=== PATIENT | female | born 1985 | race Caucasian/White ===

== ENCOUNTER 2017-02-22 11:24 | Emergency (ER) | payer OTHER ==
[2017-02-22] MEDS ORDERED: Sodium Chloride 0.9% 1,000 ML PRIMARY IV ONE (11:37)
--- NOTE | 2017-02-22 11:42 | PDOC ---
Female Problem HPI - General Chief Complaint: Vag Complaint/Bleed, <20WK IUP Stated Complaint: spotting in Date Seen by Provider: 02/22/17 Time Seen by Provider: 11:39 Source: POSITIVE: Patient Exam Limitations: POSITIVE: No limitations Nurse's Notes Reviewed & Considered: Yes - History of Present Illness Initial Comments: This is a pleasant 31-year-old female coming in today with complaints of vaginal spotting and dysuria. Patient presently here in [place] visiting from [place]. Yesterday she developed some vaginal discharge that was dark in nature as well as having light spotting and dysuria. She denies any fever chills or sweats, no nausea vomiting or diarrhea, no headache, no chest pain, no shortness of breath, no cough, no rashes, no myalgias or arthralgias. Body Location Affected: REPORTS: Abdomen, Genitalia Timing: REPORTS: Abrupt Duration: <24 hours Severity: Mild Quality: REPORTS: Cramping Location of Pain: REPORTS: Pelvic Cramping Vaginal Bleeding: REPORTS: Spotting : REPORTS: Sexual History: REPORTS: Active Urinary Symptoms: REPORTS: Blood in Urine, Burning w/ Urination Discharge: REPORTS: Vaginal Discharge Similar Symptoms Previously: Yes Recent Care Received: REPORTS: Denies Any Prior Injuries Related to Current Complaint?: No - Patient Home Medications Home Medications: Home Medications L.acidoph & Paracasei,B.lactis [Probiotic] 1 each PO DAILY 02/22/17 Vits W-Ca,Fe,FA(<1Mg) [] 1 tab PO DAILY 02/22/17 - Patient Allergies Allergies/Adverse Reactions: Allergies Allergy/AdvReac Type Severity Reaction Status Date / Time No Known Allergies Allergy Verified 02/22/17 11:44 ROS [place]: REPORTS: Denies Symptoms Cardiovascular: REPORTS: Denies Cardiac Symptoms Respiratory: REPORTS: Denies Resp Symptoms Neurological: REPORTS: Denies Neuro Symptoms Gastrointestinal: REPORTS: Denies GI Symptoms Endocrine: REPORTS: Denies Symptoms Musculoskeletal: REPORTS: Denies MS Symptoms Genitourinary: REPORTS: Dysuria, Other (Vaginal spotting) Eyes: REPORTS: Denies Symptoms ENT: REPORTS: Denies Symptoms Skin: REPORTS: Denies Skin Symptoms Lympathic: REPORTS: Denies Lympathic Symptoms Immunologic: POSITIVE: Denies Symptoms Psychiatric: POSITIVE: Denies Psych Symptoms Female Genitourinary Exam - General Appearance General Appearance: POSITIVE: Alert, Cooperative, No Acute Distress, No Evidence of Trauma - HEENT HEENT: POSITIVE: Head Inspection Nml, Eyes Inspection Nml, Ears Inspection Nml, Nose Inspection Nml, Oral/Dental Inspect. Nml, Pharynx Inspect. Nml, PERRL, EOMI - Neck Neck: POSITIVE: Normal Inspection, No Apparent Injury - Respiratory Respiratory: POSITIVE: No Respiratory Distress, Breath Sounds Normal, Chest Non- Tender - Cardiovascular Cardiovascular: POSITIVE: Regular Rate and Rhythm, Heart Sounds Normal, Strong Pulses Peripheral Pulses: Radial (R): 4+ - Abdomen Abdomen: POSITIVE: Soft, Normal Bowel Sounds, Non-Tender, Gravid Uterus (Fundus of the uterus is approximately 2 cm below the umbilicus.) - Back Back: POSITIVE: Normal Inspection - Skin Skin: POSITIVE: Intact, Normal For Race, Warm, Dry, No Rash - Extremities Extremity: Non-Tender: (All Extremities), Normal ROM: (All Extremities), Normal Inspection: (All Extremities), Pelvis Stable: (All Extremities) - Neurological / Psychological Neurological: POSITIVE: Oriented X3, block cutter Normal As Tested, Motor Normal, Sensation Normal, 5, 6 Female Genitourinary Progress - Results Reviewed by me Xrays/CTs/US Reviewed by me: Yes Discussed with Radiologist: Yes Lab Results Reviewed: Yes Lab Results:: Laboratory Results 02/22/17 02/22/17 Range/Units 11:58 12:40 WBC 12.07 H (4.8-10.8) 10^3/uL RBC 4.19 L (4.20-5.40) 10^6/uL Hgb 13.0 (12.0-16.0) g/dL Hct 37.7 (37.0-47.0) % MCV 90.0 (81-99) FL MCH 31.0 (27-31) PG MCHC 34.5 (33-37) g/dL RDW Std Deviation 40.1 (39-50) fL RDW Coeff of Lei 12.4 (11.5-14.5) % Plt Count 358 H (140-350) 10*3/uL MPV 9.3 (7.4-12.2) FL Immature Gran % (Auto) 0.2 (0-5) % Neut % (Auto) 76.9 (50-80) % Lymph % (Auto) 17.9 (10-50) % [place] % (Auto) 4.1 L (5-15) % Eos % (Auto) 0.4 (0-8) % Baso % (Auto) 0.5 (0-1) % Immature Gran # (Auto) 0.02 10*3/UL Neut # (Auto) 9.29 10*3/UL Lymph # (Auto) 2.16 10*3/uL [place] # (Auto) 0.49 (0.3-0.8) 10*3/UL Eos # (Auto) 0.05 10*3/UL Baso # (Auto) 0.06 10*3/UL WBC Morphology Comment Normal morphology (NORM) Plt Morphology Comment Normal morphology (NORM) RBC Morph Comment Normal morphology (NORM) Sodium 137 (135-145) meq/L Potassium 3.8 (3.8-5.2) meq/L Chloride 103 (98-112) meq/L Carbon Dioxide 21 L (23-33) meq/L Anion Gap 13 (5-20) BUN 10 (7-22) mg/dL Creatinine 0.6 (0.50-1.20) mg/dL Estimated GFR > 60 (>60 ml/min/1.73m(2)) BUN/Creatinine Ratio 16.66 (6-20) Glucose 101 (78-110) mg/dL Calculated Osmolality 282.0 (267-292) mOsm/kg Calcium 9.2 (8.7-10.7) mg/dL Total Bilirubin 0.5 (0.3-1.2) mg/dL AST 21 (8-39) IU/L ALT 25 (9-52) IU/L Alkaline Phosphatase 58 (38-126) IU/L Total Protein 7.6 (6.1-8.0) g/dL Albumin 4.4 (3.5-4.8) g/dL Globulin 3.1 (2.50-4.10) g/dL Albumin/Globulin Ratio 1.40 (1.3-2.0) mg/g HCG, Quant 59120 mIU/ML Ur Collection Type Voided specimen Urine Color Yellow Urine Clarity Clear (CLEAR) Urine pH 6.5 (5.0-8.5) Ur Specific [place] 1.010 (1.005-1.030) Urine Protein Negative (NEG) mg/dl Urine Glucose (UA) Negative (NEG) mg/dL Urine Ketones Negative (NEG) Urine Occult Blood Negative (NEG) Urine Nitrate Negative (NEG) Urine Bilirubin Negative (NEG) Urine Urobilinogen 0.2 (0.2) EU/dL Ur Leukocyte Esterase Trace (NEG) Urine RBC None (NONE) /hpf Urine WBC 0-1 (NONE) Ur Squamous Epith Cells Rare (NONE) Ur Renal Epithelial Cell None (NONE) Urine Crystals None Urine Bacteria None (NONE) Urine Casts None (NONE) Urine Mucus None (NONE) Urine Trichomonas None (NONE) Urine Yeast None (NONE) Ur Culture Indicated? Culture not set - Patient's Progress Pain Medication Addressed: POSITIVE: Not Applicable School/Work Release Addressed: POSITIVE: Yes Re-Examine Time: 15:12 Status: POSITIVE: Improved MDM / ED Course: Patient was examined, an IV started, blood drawn and sent to the lab for studies , radiographic examinations were obtained. Findings: Ultrasound shows a viable single intrauterine of approximately 17 weeks with a heart rate of 160 beats a minute. CBC is unremarkable, comprehensive metabolic panel is unremarkable, urinalysis is negative wet mount is positive for bacterial vaginosis. Assessment: Bacterial vaginosis. Plan discharge home Flagyl for one week and follow-up with web portal developer upon return to home. - Consult Counseled: POSITIVE: Patient, Family, RE: Lab Results, RE: Radiology Results, RE : DX, RE: Need for F/U Patient Care Time - Estimated PCT Patient Care Time (In Minutes): 45 Vital Signs - VS Reviewed Vital Signs Reviewed: Yes Discharge Clinical Impression: Bacterial vaginosis Discharge Disposition: Discharged to Home Condition: Good Patient Instructions Given at Discharge: Bacterial Vaginosis (ED)
[2017-02-22 12:13] LABS: BASOPHILS # (AUTO) 0.06 10*3/UL; BASOPHILS % (AUTO) 0.5 % (0-1); EOSINOPHILS # (AUTO) 0.05 10*3/UL; EOSINOPHILS % (AUTO) 0.4 % (0-8); HEMATOCRIT 37.7 % (37.0-47.0); LYMPHOCYTES # (AUTO) 2.16 10*3/uL; MEAN CORPUSCULAR HGB CONC 34.5 g/dL (33-37); MEAN PLATELET VOLUME 9.3 FL (7.4-12.2); MONOCYTES # (AUTO) 0.49 10*3/UL (0.3-0.8); MONOCYTES % (AUTO) 4.1 % (5-15); NEUTROPHILS # (AUTO) 9.29 10*3/UL; NEUTROPHILS % (AUTO) 76.9 % (50-80); RED BLOOD COUNT 4.19 10^6/uL (4.20-5.40)
[2017-02-22 12:14] LABS: PLATELET MORPHOLOGY COMMENT NORMAL MORPHOLOGY (NORM); RBC MORPHOLOGY COMMENT NORMAL MORPHOLOGY (NORM); WBC MORPHOLOGY COMMENT NORMAL MORPHOLOGY (NORM)
[2017-02-22 12:22] LABS: BLOOD UREA NITROGEN 10 mg/dL (7-22); BUN/CREATININE RATIO 16.66 (6-20); CALCIUM 9.2 mg/dL (8.7-10.7); EST GLOMERULAR FILTRATION > 60 (>60 ml/min/1.73m(2)); SERUM ALBUMIN 4.4 g/dL (3.5-4.8)
[2017-02-22 12:55] LABS: BILIRUBIN,URINE NEGATIVE (NEG); CLARITY,URINE CLEAR (CLEAR); COLOR,URINE YELLOW; GLUCOSE, URINE (UA) NEGATIVE (NEG); NITRATE,URINE NEGATIVE (NEG); OCCULT BLOOD,URINE NEGATIVE (NEG); PH,URINE 6.5 (5.0-8.5); PROTEIN,URINE NEGATIVE (NEG); UROBILINOGEN,URINE 0.2 EU/dL (0.2)
[2017-02-22 12:58] LABS: SQUAMOUS EPITHELIAL CELL,UR RARE; URINE SAMPLE TYPE VOIDED SPECIMEN; WBC,URINE 0-1
--- NOTE | 2017-02-22 14:33 | DI ---
US OB , LIMITED,02/22/2017 11:37 AM: Clinical History: Vaginal spotting and cramping Previous Exam: None at this facility. Findings: Multiple grayscale and color Doppler sonographic images are obtained through the pelvis, and demonstr ate a normal cervix which is long and closed measuring 5.1 cm in length. The inferior margin of the p lacenta is clear of the internal cervical os but is slightly low-lying measuring approximately 1.7 cm from the internal cervical os. The placenta is posterior with a normal appearance. Detected Doppler heart tones measure 163 beats per minute. Amniotic fluid index is normal measuring 15.1 cm. Estimated gestational age was determined by a composite of biparietal diameter, head circumference, a bdominal circumference and femur length yielding an estimated gestational age by ultrasound of 17 wee ks 3 days. Estimated weight is 179 g (56 percentile). Impression: Single live intrauterine gestation with size equal to dates. No evidence of placenta previa although the placenta appears to be low-lying. Images necessary to con firm superior migration of the placenta. Cervix long and closed measuring 5.1 cm in length. Normal amniotic fluid index (15.1 cm)
[2017-02-22] MEDS ORDERED: metroNIDAZOLE Tab 500 MG TAB PO ONE (15:09)
[2017-02-22 15:40] VITALS: RESP 16; TEMP 110
== END 2017-02-22 15:35 | disposition home or self-care (01) ==
LOC: ER 11:24
DX: O26.852 Spotting complicating pregnancy, second trimester (principal); N76.0 Acute vaginitis; R30.0 Dysuria
CPT/HCPCS: 76815; 80053; 81001; 81003; 84702; 85025; 87480; 87491; 87510; 87591; 87660; 96360; 96361; 99283